=== PATIENT | female | born 1985 | race African-American/Black ===

== ENCOUNTER → 2022-09-27 14:14 | Outpatient (CLI) | payer OTHER, SELFPAY ==
--- NOTE | ~2022-09-27 | MMUS_ITS ---
EXAMINATION: MM diagnostic aster BI w nallely, US breast BI complete HISTORY: Palpable left breast lump TECHNIQUE: Additional 3-D tomosynthesis images of the breasts were performed and synthetic 2-D images were generated. CAD analysis was submitted and interpreted. High resolution bilateral complete breas t ultrasound was performed. COMPARISON: None BREAST PARENCHYMAL COMPOSITION: The breasts are extremely dense, which lowers the sensitivity of mamm ography FINDINGS: MAMMOGRAPHIC FINDINGS: There are no suspicious masses, calcifications or architectural distortion in either breast to sugges t malignancy. ULTRASOUND: Complete bilateral US of all 4 quadrants of the breasts and retroareolar region was reviewed. Right breast: At 12:00, 5 cm from the nipple, there is an oval hypoechoic mass measuring 7 x 7 x 4 mm without internal vascularity or posterior features. The margins are smooth with parallel orientation . At 7:00, 7 cm from the nipple there is a 2 mm cyst. Left breast: At 12:00, 1 cm from the nipple, there is a 4 mm cyst. At 4:00, 4 cm from the nipple ther e is a 4 mm cyst. IMPRESSION: 1. Probable benign right breast mass at 12:00, 5 cm from the nipple measuring 7 mm. No evidence for m alignancy in the left breast. 2. Recommend 6 month follow-up Limited right breast ultrasound BI-RADS category 3, probably benign findings. Reviewed, dictated and finalized at location A. IMPRESSION: 1. Probable benign right breast mass at 12:00, 5 cm from the nipple measuring 7 mm. No evidence for malignancy in the left breast. 2. Recommend 6 month follow-up Limited right breast ultrasound BI-RADS category 3, probably benign findings.
== END ==
DX: N63.20 Unspecified lump in the left breast, unspecified quadrant (principal); N63.10 Unspecified lump in the right breast, unspecified quadrant
CPT/HCPCS: 76641; 77062; 77066; G0279

== ENCOUNTER 2024-09-10 12:05 | Emergency (ER) | payer OTHER, SELFPAY ==
[2024-09-10] VITALS (9 sets, daily range): BP systolic 125–137; BP diastolic 75–93; PULSE 78–82; RESP 18–20; TEMP 36.6–36.7; O2SAT 99–100
--- NOTE | ~2024-09-10 | CT_ITS ---
EXAMINATION: CT abdomen pelvis w con DATE: 09/10/2024 13:43 INDICATION: Periumbilical abdominal pain. Leukocytosis. TECHNIQUE: Computed tomography (CT) of the abdomen and pelvis was performed with 100 mL Omnipaque 350 intravenous contrast. Automated exposure control and iterative reconstruction technique were employe d. The dose-length product was 440.59 mGy-cm. COMPARISON: None. FINDINGS: The visualized portions of the lung bases are clear without pneumonia or pleural effusion. The heart size is normal. No pericardial effusion. The liver, gallbladder, spleen, pancreas, adrenal glands, and kidneys are normal. There is a 6.0 cm mass in the uterus, likely separate from the endome trial complex, consistent with a fibroid. There is a 17 mm uterine fibroid. There are no dilated loop s of bowel. The appendix is normal. There are no pathologically enlarged lymph nodes. There is physio logic fluid in the pelvis. There is mild lumbar spondylosis. IMPRESSION: 1. Uterine fibroids. Reviewed, dictated and finalized at location B. IMPRESSION: 1. Uterine fibroids.
[2024-09-10 12:56] LABS: BEDSIDEPREGUCG Negative (Negative)
[2024-09-10 13:00] LABS: Basophils Absolute Auto 0.1 K/mm3 (0.0-0.1); Basophils Percent Auto 0.5 % (0.2-1.2); Eosinophils Absolute Auto 0.3 K/mm3 (0-0.3); Eosinophils Percent Auto 2.1 % (0-4.4); Hematocrit 38.6 % (37.0-47.0); Hemoglobin 12.1 g/dL (12.0-15.0); Immature Granulocyte Absolute 0.04 K/mm3 (0.00-0.031); Immature Granulocyte Percent A 0.3 % (0-0.5); Lymphocytes Absolute Auto 3.61 K/mm3 (0.9-3.2); Lymphocytes Percent Auto 29.6 % (18.3-44.2); Mean Corpuscular HGB Conc 31.3 g/dl (32-36); Mean Corpuscular Hemoglobin 26.9 pg (26-34); Mean Platelet Volume 9.9 fl (7.4-10.4); Monocytes Percent Auto 8.3 % (2.6-8.5); Neutrophils Absolute Auto 7.2 K/mm3 (1.3-6.7); Neutrophils Percent Auto 59.2 % (45.5-73.1); Platelet Count Result 350 k/mm3 (150-375); Red Blood Count 4.49 M/mm3 (4.2-5.4); Red Cell Distribution Width 13.7 % (11.5-14.5); White Blood Count 12.2 K/mm3 (4.5-10.0)
[2024-09-10 13:02] LABS: Add Urine Microscopic? NO; Appearance Urine Clear (Clear); Bilirubin Urine Negative (Negative); Blood Urine Negative (Negative); Color Urine Yellow (Yellow); Glucose Urine UA Negative (Negative); Ketones Urine 1+ mg/dL (Negative); Leukocyte Esterase Ur Negative LEU/UL (Negative); Nitrate Urine Negative (Negative); Protein Urine Negative (Negative); Specific Grav Ur 1.006 (1.001-1.035); Urobilinogen Urine 0.2 mg/dL (<2.0); pH Urine 5.5 (5.0-9.0)
[2024-09-10 13:11] LABS: Alanine Aminotransferase 20 U/L (6-35); Albumin Level 4.4 g/dL (3.5-5.1); Alkaline Phosphatase 64 U/L (38-126); Anion Gap 13 mmol/L (4-12); Aspartate Amino Transferase 22 U/L (14-36); Bilirubin,Total 0.6 mg/dL (0.2-1.3); Blood Urea Nitrogen 7 mg/dL (7-17); Calcium 9.1 mg/dL (8.4-10.2); Carbon Dioxide 21 mmol/L (22-30); Chloride 102 mmol/L (98-107); Estimated CRCL calculation 74 ml/min; Estimated Glomerular Filt Rate > 60; Glucose 90 mg/dL (65-110); Lipase 30 U/L (23-300); Potassium 3.9 mmol/L (3.4-5.0); Sodium 136 mmol/L (137-145)
--- NOTE | 2024-09-10 13:36 | ED_ITS ---
HPI - Abdominal Pain General Chief Complaint: Abdominal Pain Stated Complaint: Lower abd pain x 1 week Time Seen by Provider: 09/10/24 13:08 History of Present Illness HPI narrative: 39-year-old female with no pertinent past medical history presenting to the emergency room for 1 week of periumbilical lower abdominal pain that is bilateral. Patient states that has been going for last week, might be related to food as she states that she was having some indigestion sensations and feeling of bloating and gas. Has been taking rtlr-bwh-gplymci medications and Gas-X without any help. No nausea or vomiting. Endorses more pain and left- sided somewhat radiating towards her left flank occasionally. Previous to this she started having episodes of diarrhea that has since subsided. Patient describes the pain as menstrual type cramping but denies any current menses. No fever chills. Was otherwise in her normal state of health, denies chance of , denies any injury or trauma. Related Data Home Medications ?Medication ?Instructions ?Recorded ?Confirmed ?Last Taken ?Type norethindrone (contraceptive) 0.35 0.35 mg PO DAILY 05/25/24 06/08/24 Unknown History mg tablet Allergies Allergy/AdvReac Type Severity Reaction Status Date / Time No Known Allergies Allergy Verified 09/10/24 12:06 Review of Systems 2 Review of Systems: As reviewed above in HPI [facility] Family History Family History Mother Breast cancer onset in her 30s, also Maternal Grandmother and Great grandmother Carcinoma of colon Father Liver disease Bone cancer Social History Social History Smoking status: Current every day smoker Tobacco type: cigarettes Additional smoking assessment comments: Noted that she had tried to quit smoking in 2019 Alcohol intake: current Drinks per week: 4 Alcohol use details: Drinks 1-4 drinks per week Substance use: current Substance use type: marijuana Do You Feel Safe in your Home?: Yes Lack of Transportation: No Lack of Food: Never True Current Housing: I Have Housing Concerned About Future Housing: No Difficulty Paying Gas/Electric Bills: No Difficulty Paying for Meds: No Currently Unemployed: No Education: Associate Degree Difficulty w/ Childcare or Family Care: No Exam 2 Narrative: GENERAL: [Well-appearing, well-nourished, and in no acute distress.] HEAD: [Normocephalic, atraumatic.] EYES: [PERRLA and EOMI.] ENT: Nares clear, no rhinorrhea or epistaxis. Mucous membranes moist. NECK: Supple. CHEST: [Clear to auscultation. No respiratory distress.] HEART: [Regular rate and rhythm]. No murmur heard. [Normal peripheral pulses.] ABDOMEN: [Soft, nondistended], [nontender], [No rigidity or guarding] EXTREMITIES: Normal range of motion. [No edema.] SKIN: Warm, dry, no rash. NEURO: [No focal deficits]. Alert and oriented [x3.] PSYCH: [Normal mood and affect.] Course Vital Signs Vital signs: Vital Signs Temperature 36.6 C 09/10/24 12:16 Pulse Rate 82 09/10/24 12:16 Respiratory Rate 20 09/10/24 12:16 Blood Pressure 137/90 09/10/24 12:16 Pulse Oximetry 100 09/10/24 12:16 Oxygen Delivery Room Air 09/10/24 12:16 Temperature 36.6 C 09/10/24 12:16 Pulse Rate 81 09/10/24 12:44 Respiratory Rate 18 09/10/24 12:44 Blood Pressure 130/81 09/10/24 13:01 Pulse Oximetry 100 09/10/24 13:03 Oxygen Delivery Room Air 09/10/24 12:16 MDM - Abdominal Pain MDM Narrative Medical decision making narrative: 39-year-old otherwise healthy female presenting with lower abdominal pain bilaterally but more so focused on the left side left flank. Lower periumbilical pain for 1 week with previous diarrheal illness for several days. Feels bloated and having menstrual type cramping sensations. Taking wjwq-inv-qcbpgya medications without relief. She is otherwise well-appearing with normal vital signs no tachycardia, fever, hypoxia blood pressure concerns. She has a soft nontender nondistended abdomen. Patient is comfortable with the pain that is 3/10 declining any analgesia medications at this time. Considerations presently for gastroenteritis, appendicitis, cholecystitis less likely, potential ovarian pathology although less likely. Workup ordered including CBC, CMP, lipase, urinalysis, CT scan with abdomen pelvis contrast. Workup reveals a minor leukocytosis of 12.2, normal hemoglobin, normal platelet count. Electrolytes largely within normal limits, normal renal and hepatic function panel. Normal glucose. Negative lipase. Urinalysis with negative test and no signs of infection. CT scan shows uterine fibroids with a 6 cm intrauterine fibroid and a 17 mm uterine fibroid an additional. I went and re-evaluated the patient who had no symptoms at this time, stable vital signs and we went over the imaging studies together. Her symptoms are very consistent with her fibroids that she has been having these intermittent cramping menstrual period pains without menses recently. Went over next steps and recommendations for OBGYN outpatient evaluation on non urgent/emergent basis and ibuprofen and Tylenol for pain control. Patient was given return precautions and safe for stable discharge at this time. Medical Records Attestation: I reviewed the patient's medical records. Lab Data Attestation: I reviewed the patient's lab results. 09/10/24 12:52 09/10/24 12:52 Labs: Lab Results 09/10/24 09/10/24 Range/Units 12:50 12:52 WBC 12.2 H (4.5-10.0) K/mm3 RBC 4.49 (4.2-5.4) M/mm3 Hgb 12.1 (12.0-15.0) g/dL Hct 38.6 (37.0-47.0) % MCV 86.0 (80-100) fl MCH 26.9 (26-34) pg MCHC 31.3 L (32-36) g/dl RDW 13.7 (11.5-14.5) % Plt Count 350 (150-375) k/mm3 MPV 9.9 (7.4-10.4) fl Immature Gran % (Auto) 0.3 (0-0.5) % Neut % (Auto) 59.2 (45.5-73.1) % Lymph % (Auto) 29.6 (18.3-44.2) % Gonzales % (Auto) 8.3 (2.6-8.5) % Eos % (Auto) 2.1 (0-4.4) % Baso % (Auto) 0.5 (0.2-1.2) % Lymph # (Auto) 3.61 H (0.9-3.2) K/mm3 Gonzales # (Auto) 1.0 H (0.1-0.6) K/mm3 Eos # (Auto) 0.3 (0-0.3) K/mm3 Baso # (Auto) 0.1 (0.0-0.1) K/mm3 Abs Immat Gran (auto) 0.04 H (0.00-0.031) K/mm3 Absolute Neuts (auto) 7.2 H (1.3-6.7) K/mm3 Absolute Nucleated RBC 0.000 (0.0-0.012) K/mm3 Nucleated RBC % 0.0 (0.0-0.2) % Sodium 136 L (137-145) mmol/L Potassium 3.9 (3.4-5.0) mmol/L Chloride 102 (98-107) mmol/L Carbon Dioxide 21 L (22-30) mmol/L Anion Gap 13 H (4-12) mmol/L BUN 7 (7-17) mg/dL Creatinine 0.81 (0.7-1.0) mg/dL Estim Creat Clear Calc 74 ml/min Estimated GFR > 60 (59 - ) Glucose 90 (65-110) mg/dL Calcium 9.1 (8.4-10.2) mg/dL Total Bilirubin 0.6 (0.2-1.3) mg/dL AST 22 (14-36) U/L ALT 20 (6-35) U/L Alkaline Phosphatase 64 (38-126) U/L Total Protein 8.0 (6.3-8.2) g/dL Albumin 4.4 (3.5-5.1) g/dL Lipase 30 (23-300) U/L Urine Color Yellow (Yellow) Urine Appearance Clear (Clear) Urine pH 5.5 (5.0-9.0) Ur Specific Humble 1.006 (1.001-1.035) Urine Protein Negative (Negative) mg/dL Urine Glucose (UA) Negative (Negative) mg/dL Urine Ketones 1+ H (Negative) mg/dL Ur Blood (Man) Negative (Negative) Urine Nitrate Negative (Negative) Urine Bilirubin Negative (Negative) Urine Urobilinogen 0.2 (<2.0) mg/dL Leukocyte Esterase Rfl Negative (Negative) TRENT/UL POC Urine HCG, Qual Negative (Negative) Imaging Data Attestation: I personally reviewed and interpreted this imaging study as follows: My impression: Impressions Abdomen/Pelvis CT 09/10/24 13:45 IMPRESSION: 1. Uterine fibroids. Radiologist's impression: ITS Impressions Abdomen/Pelvis CT 09/10/24 13:45 IMPRESSION: 1. Uterine fibroids. Discharge Plan Discharge Clinical Impression: Uterine fibroid, Abdominal pain Patient Disposition: Home, Self-Care Condition: Stable Instructions: Antibiotic Form, Uterine Fibroids (ED), Myomectomy (DC) Additional Instructions: Your CT scan shows uterine fibroids which are out growths of the uterus including a 6 cm fibroid inside the uterus and a 17 mm fibroid outside the uterus. These are benign growths but likely explaining your symptoms. Recommendations at this time are to get in contact with OBGYN which we have provided for you to evaluate you on an outpatient basis for potential interventions and take ibuprofen, Advil up to 600 mg every 6 hours if you have any residual pains or cramping sensations. Return if you have any new or worsening concerns such as heavy vaginal bleeding, increased pain, loss of consciousness or any other concerns. Patient Language: Belarusian Prescriptions: No Action norethindrone (contraceptive) 0.35 mg tablet 0.35 mg PO DAILY fluticasone propionate 50 mcg/actuation spray,suspension 1 spray intranasal DAILY Qty: 16 0RF Rx Instructions: administer into each nostril ondansetron HCl 4 mg tablet 4 mg PO Q8H PRN (Reason: nausea and vomiting) Qty: 20 0RF Follow-up/Referrals: Alycia Hernandez MD [Physician] - 1 Week (Uterine fibroids) Brissa Garcia APRN [Primary Care Provider] - Time of Disposition: 15:50
--- OUTSIDE RECORDS SUMMARY | 2024-09-10 13:59 | XMS_ITS | Referral Summary ---
Author Organization [facility] [address] [facility] Address [address] [place] [address] Care Team Providers Care Cocoa Powder Mixer Operator Name Role Phone Lawanda Salgado Primary Care Provider +1- [phone] Allergies No known active allergies Medications omeprazole (PriLOSEC) 20 mg capsuleIndicatio ns:Acute gastric ulcer without hemorrhage or perforation Take 1 capsule (20 mg total) by mouth daily 30 capsule 05/19/2021 Active Vienva 0.1-20 mg-mcg per tablet TAKE 1 TABLET BY MOUTH DAILY 28 tablet 08/24/2021 Active Active Problems Problem Noted Date Diagnosed Date BMI 27.0-27.9,adult 09/17/2020 Assessment & Plan (09/17/2020 3:07 PM CDT): Weight/BMI is in healthy range. Continue healthy lifestyle to maintain. Gastric ulcer 09/17/2020 Family history of breast cancer 09/17/2020 Assessment & Plan (09/17/2020 3:08 PM CDT): Discussed and advised referral for genetic counseling - she wants to pause this at the current time due to a job change. She will contact us over the coming weeks as she will be ready to pursue at that time. Also advised routine well woman exam - here or with sharepoint net developer and instructed on monthly self breast exams Family history of colon cancer 09/17/2020 Assessment & Plan (09/17/2020 3:07 PM CDT): Discussed and advised referral for genetic counseling - she wants to pause this at the current time due to a job change. She will contact us over the coming weeks as she will be ready to pursue at that time. Encounter to establish care 09/17/2020 Assessment & Plan (09/17/2020 3:06 PM CDT): Retrieve records from Dr. Delgado's office Encouraged continued heart healthy diet, exercise 4x/week for 30min each session Anxiety 09/17/2020 Assessment & Plan (09/17/2020 3:07 PM CDT): Declines medication at this time. Will refer to counseling. Episode of recurrent major depressive disorder 0 09/17/2020 Assessment & Plan (09/17/2020 3:07 PM CDT): Declines medication at this time. Will refer to counseling. Immunizations Immunization Administration Dates Next Due Influenza, Quadrivalent, Spl it, Preservative Free, Intramuscular 04/12/2020 Pfizer SARS-CoV-2 Monovalent Vaccination (12+ Yrs) PURPLE 09/02/2020 Social History Tobacco Use Types Packs/Day Years Used Date Smoking Tobacco: Former Smokeless Tobacco: Never Comments:quit a year ago PHQ-2 Answer Date Recorded PHQ-2 Total Score (If total score is 3 or more points, staff should administer the PHQ-9) 0 09/17/2020 Personal Safety Answer Date Recorded Getting School Help Needed Not on file 09/03 Comments Unknown Sex and Gender Information Value Date Recorded Sex Assigned at Not on file 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 Gender Identity Not on file Sexual Orientation Not on file Last Filed Vital Signs Vital Sign Reading Time Taken Comments Blood Pressure 100/60 09/17/2020 1:09 PM CDT Pulse 73 09/17/2020 1:09 PM CDT Temperature 36.5 C (97.7 F) 09/17/2020 1:09 PM CDT Respiratory Rate - - Oxygen Saturation 98% 09/17/2020 1:09 PM CDT Inhaled Oxygen Concentration - - Weight 68.7 kg (151 lb 8 oz) 09/17/2020 1:09 PM CDT Height 157.5 cm (5' 2 ) 09/17/2020 1:09 PM CDT Body Mass Index 27.71 09/17/2020 1:09 PM CDT Plan of Treatment Not on file Insurance [facility] Care Teams Cocoa Powder Mixer Operator Relationship Specialty Start Date End Date Lawanda Salgado PA PCP - General Medical And Health Services Manager 09/08/20
--- OUTSIDE RECORDS SUMMARY | 2024-09-10 13:59 | XMS_ITS | Clinical Summary ---
Author Organization [facility] [address] [facility] Address [address] [place] [address] Care Team Providers Care Grain Merchandiser Name Role Phone Lawanda Salgado Primary Care Provider +1- [phone] Allergies No known active allergies Medications omeprazole [...] well woman exam - here or with interlocking pavement installer and instructed on monthly self breast exams [...] SARS-CoV-2 Monovalent Vaccination (12+ Yrs) PURPLE 09/02/2020 Family History Medical History Relation Name Comments Heart disease Father Breast cancer Mother Colon cancer Mother Relation Name Status Comments Father Mother mother had brai n tumor Social History Tobacco Use Types Packs/Day Years [...] on file Legal Sex Female 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
--- OUTSIDE RECORDS SUMMARY | 2024-09-10 16:00 | XMS_ITS | Clinical Summary ---
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
--- OUTSIDE RECORDS SUMMARY | 2024-09-10 16:00 | XMS_ITS | Referral Summary ---
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
== END 2024-09-10 16:02 | disposition home or self-care (01) ==
PROVIDERS: Emergency Provider Student in an Organized Health Care Education/Training Program; PCP Nurse Practitioner Family
DX: D25.9 Leiomyoma of uterus, unspecified (principal); F17.210 Nicotine dependence, cigarettes, uncomplicated
CPT/HCPCS: 36415; 74177; 80053; 81003; 81025; 83690; 85025; 99284; Q9967

== ENCOUNTER 2024-11-06 10:26 | Outpatient (CLI) | payer OTHER, SELFPAY ==
[2024-11-06 10:51] LABS: Hemoglobin 12.7 g/dL (12.0-15.0); Mean Corpuscular Hemoglobin 26.5 pg (26-34); Mean Corpuscular Volume 85.4 fl (80-100); Mean Platelet Volume 9.9 fl (7.4-10.4); Platelet Count Result 307 k/mm3 (150-375); Red Cell Distribution Width 14.6 % (11.5-14.5); White Blood Count 8.6 K/mm3 (4.5-10.0)
--- OUTSIDE RECORDS SUMMARY | 2024-11-06 11:22 | XMS_ITS | Referral Summary ---
Author Organization [facility] [address] [facility] Address [address] [place] [address] Care Team Providers Care Soft Drink Powder Mixer Name Role Phone Lawanda Salgado Primary Care Provider +1- [phone] Allergies No known active allergies Medications omeprazole [...] well woman exam - here or with artificial flower maker and instructed on monthly self breast exams [...] on file Legal Sex Female 4:[address] COMMISSIONER Gender Identity Not on file Sexual Orientation [...] Plan of Treatment Not on file Insurance [facility] Care Teams Soft Drink Powder Mixer Relationship Specialty Start Date End Date Lawanda Salgado PA PCP - General Organ Installer 09/08/20
--- OUTSIDE RECORDS SUMMARY | 2024-11-06 11:22 | XMS_ITS | Clinical Summary ---
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
== END 2024-11-06 10:27 | disposition home or self-care (01) ==
LOC: ANHSURGERY 10:29
PROVIDERS: PCP Nurse Practitioner Family; Visit Provider Student in an Organized Health Care Education/Training Program
DX: R10.2 Pelvic and perineal pain (principal); N93.9 Abnormal uterine and vaginal bleeding, unspecified
CPT/HCPCS: 36415; 85027; 86850; 86900; 86901

== ENCOUNTER 2024-11-06 11:37 | Outpatient (CLI) | payer OTHER, SELFPAY ==
--- NOTE | ~2024-11-06 | MM_ITS ---
EXAMINATION: MM screening [facility] BI w nallely HISTORY: Screening TECHNIQUE: Craniocaudal and mediolateral oblique 3-D tomosynthesis images were obtained and synthetic 2-D images were generated. CAD analysis was submitted and interpreted. COMPARISON: 09/27/2022 BREAST PARENCHYMAL COMPOSITION: Dense: The breasts are extremely dense, which lowers the sensitivity of mammography. FINDINGS: There is a developing asymmetry in the upper central aspect of the left breast, posterior t hird. The right breast is stable without evidence for malignancy. IMPRESSION: 1. Developing left breast asymmetry. 2. Additional mammographic views and possible breast ultrasound are recommended. BI-RADS Category 0: Incomplete: Needs additional imaging evaluation. Reviewed, dictated and finalized at location A. IMPRESSION: 1. Developing left breast asymmetry. 2. Additional mammographic views and possible breast ultrasound are recommended . BI-RADS Category 0: Incomplete: Needs additional imaging evaluation.
== END 2024-11-06 11:38 | disposition home or self-care (01) ==
PROVIDERS: PCP Nurse Practitioner Family; Visit Provider Nurse Practitioner Family
DX: Z12.31 Encounter for screening mammogram for malignant neoplasm of breast (principal); N64.89 Other specified disorders of breast
CPT/HCPCS: 77063; 77067

== ENCOUNTER 2024-11-13 00:55 | Day surgery (SDC) | payer OTHER, SELFPAY ==
[2024-10-31 12:17] VITALS: BMI 30.2
--- NOTE | 2024-10-31 12:18 | PC.NURSE ---
Report to the Outpatient Waiting Room, entrance under the green pavilion located off [facility], at time _0830_ on date _[id number]_. Planned Procedure Time: _1030_. Time changes happen often and if your time is changed the preop area will call you the afternoon before. - You and your visitor will be asked to self-screen and do not enter if you have any COVID symptoms. Please call surgeon if you need to reschedule. - A mask is optional within the hospital at this time. Patients may have clear liquids (water, carbonated beverages, clear teas, apple juice) until 3 hours prior to surgery with a maximum of 20 ounces. - No food from midnight until time of surgery and no smoking, or chewing tobacco (or any form of nicotine). No chewing gum, candy or mints. Take only the following medications with a SIP of water on the morning of surgery: __Sprintec___ DO NOT STOP ANY OF YOUR OTHER PRESCRIPTION MEDICATIONS PRIOR TO SURGERY EXCEPT THE FOLLOWING Hold all vitamins and supplements for 3 days per anesthesiologist. Medications to discontinue per physician Date to take last dose Please no make-up, nail danish, hairspray, perfume, deodorant, or body powder the day of surgery. No jewelry (including any body piercings) or valuables the day of surgery, leave them at home. Please take a shower or bath the night before, or the morning of, surgery with an antibacterial soap. Wear comfortable, loose fitting clothing. - Jewelry must be removed prior to entering the operating room. Rings and piercings that are not removed may be cut off. - The hospital will not accept responsibility for valuables. - Please leave all valuables, including medications, at home the day of surgery. If you are going home after surgery, a licensed goat driver must drive you home. - NO public transportation without another adult if you receive anesthesia. - We recommend that an adult stay with you for 24 hours following discharge. - We also recommend that you do not drive, make important decision, drink alcoholic beverages, or take any drugs that were not prescribed by your health care provider for at least 24 hours after your discharge time. Follow any additional instructions given to you from your surgeon. Telephone instructions given to _Krista___and asked if any additional questions and then verbalized understanding. Patient advised to call surgeon office or pre surgery nurse liaison [phone] if any additional questions.
--- NOTE | 2024-11-12 13:53 | P.HP_ITS ---
H&P: HPI History of Present Illness Date/Time: 11/12/24 13:53 Chief Complaint: Abnormal uterine bleeding Uterine fibroids Pelvic pain Narrative: 39-year-old female who presents for robotic TLH / BS for management of abnormal uterine bleeding secondary to uterine fibroids. Patient has tried hormonal contraceptives without relief of abnormal bleeding. Patient does not desire any children. Patient requests surgical management via hysterectomy. Review of Systems Cardiovascular: Cardiovascular: Denies chest pain, Denies leg edema, Denies palpitations, Denies dyspnea and Denies dyspnea on exertion Respiratory: Respiratory: Denies cough, Denies dyspnea and Denies dyspnea on exertion Gastrointestinal: Gastrointestinal: Denies abdominal pain, Denies constipation, Denies diarrhea, Denies nausea and Denies vomiting Genitourinary: Genitourinary: Denies hematuria, Denies urinary frequency, Denies dysuria, Denies pelvic pain, Denies urinary incontinence and Denies vaginal discharge Neurologic: Reports system reviewed and no additional complaints, except as documented Psychiatric: Psychiatric: Reports no additional psychiatric complaints Endocrine: Endocrine: Denies palpitations [facility] Family History Family History Mother Breast cancer onset in her 30s, also Maternal Grandmother and Great grandmother Carcinoma of colon Father Liver disease Bone cancer Grandparent Heart disease Hypertension Breast cancer Social History Social History Smoking packs per day: 1 Smoking cigarettes per day: 20.0 Years smoked: 15 Smoking pack-years: 15.00 Smoking status: Current every day smoker Tobacco type: cigarettes Additional smoking assessment comments: Noted that she had tried to quit smoking in 2019 Alcohol intake: current Drinks per week: 6 Alcohol use details: Drinks 1-4 drinks per week Substance use: current Substance use type: marijuana Other substance usage details: Occasionally Do You Feel Safe in your Home?: Yes Lack of Transportation: No Lack of Food: Never True Current Housing: I Have Housing Concerned About Future Housing: No Difficulty Paying Gas/Electric Bills: No Difficulty Paying for Meds: No Currently Unemployed: No Education: Associate Degree Difficulty w/ Childcare or Family Care: No Living arrangements: with family Occupation/Education: occupation Gender identity (if verbalized by the patient): Female Sexual Orientation (if Verbalized by the Patient): Straight or Heterosexual Spiritual care concerns: No Meds Home Medications and Allergies Home Medications Medication Instructions Recorded Confirmed Type norgestimate 0.25 mg-ethinyl 1 tablet PO DAILY #84 tabs 09/24/24 10/31/24 Rx estradiol 0.035 mg tablet (Sprintec (28)) ondansetron HCl 4 mg tablet 4 mg PO Q6H PRN nausea and 10/24/24 10/31/24 Rx vomiting #30 tabs Allergies Allergy/AdvReac Type Severity Reaction Status Date / Time No Known Allergies Allergy Verified 10/31/24 12:08 Exam Const: General: no acute distress Eyes: EOM: EOMs intact bilaterally Neck: Neck: supple Thyroid: thyroid normal Chest: Breast/axilla inspection: normal inspection of the breasts Breast/axilla palpation: normal palpation of the breasts, normal palpation of the axillae and no axillary lymphadenopathy Resp: Effort & Inspection: normal respiratory effort Auscultation: clear to auscultation bilaterally Cardio: Rate: regular rate Rhythm: regular rhythm GI: Inspection: non-distended GI Palp: Yes Soft to palpation, No Tenderness to palpation present (GI) and No Guarding due to palpation present (GI) Auscultation: normal bowel sounds : General: No bladder normal to palpation External Female Exam: normal external appearance Speculum Exam - Vagina: normal vaginal discharge and No vaginal bleeding Speculum Exam - Cervix: nontender Bimanual exam- vagina & uterus: No bladder normal to palpation and No Cervical tenderness present OB/external & speculum: No vaginal bleeding Skin: General skin exam: normal color and no rashes or lesions noted Neuro: Cognition (Neuro): normal cognition Speech: normal speech Extrem: General: normal to inspection and no edema Psych: Mental Status: mental status grossly normal Affect: normal affect Assessment and Plan Assessment and plan (1) Abnormal uterine bleeding (AUB): Code(s): N93.9 - Abnormal uterine and vaginal bleeding, unspecified Status: Acute (2) Pelvic pain: Code(s): R10.2 - Pelvic and perineal pain Status: Acute (3) Uterine fibroid: Code(s): D25.9 - Leiomyoma of uterus, unspecified Status: Inactive Assessment and Plan: 39-year-old female presents for follow-up regarding uterine fibroids Patient initially presented to the ER with pelvic pain, CT scan showed enlarged uterus with fibroids Pelvic ultrasound showed uterus measuring 8.9 x 8.8 x 8.2 cm. There were 3 uterine fibroids noted, 6 cm, 2 cm, 2 cm. The largest 6 cm fibroid is within the endometrial cavity Patient continues to have heavy menses despite hormonal contraceptive use Management options of uterine fibroids reviewed Discussed medical versus surgical management Risks and benefits of each reviewed Patient does not desire any children Patient is interested in definitive management of uterine fibroids Risks, benefits, alternatives of hysterectomy reviewed Will plan for robotic assisted total laparoscopic hysterectomy with bilateral salpingectomy
[2024-11-13] VITALS (10 sets, daily range): BP systolic 111–147; BP diastolic 67–89; PULSE 55–100; RESP 14–18; TEMP 36.3–37.1; O2SAT 96–100; BMI 30.9
--- OUTSIDE RECORDS SUMMARY | 2024-11-13 00:59 | XMS_ITS | Clinical Summary ---
Author [place] [facility] [place] [address] [facility] Address [address] [place] [address] Care Team Providers Care Ferry Captain Name Role Phone Lawanda Salgado Primary Care Provider [phone]- [phone] Allergies No known active allergies Medications omeprazole [...] well woman exam - here or with manager air and instructed on monthly self breast exams [...] 3:06 PM CDT): Retrieve records from Dr. 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
--- OUTSIDE RECORDS SUMMARY | 2024-11-13 00:59 | XMS_ITS | Referral Summary ---
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
[2024-11-13] MEDS: LACTATED RINGERS 1,000 ML 30 ML IV CONT ×2 (09:10→12:51)
[2024-11-13] MEDS: ACETAMINOPHEN 500 MG TABLET 1000 MG PO ×3 (09:20→22:10)
[2024-11-13] MEDS: KETOROLAC 15 MG/ML VIAL (*BKC) IV PUSH (09:20)
--- NOTE | 2024-11-13 10:26 | P.PNAN_ITS ---
Anes - Initial Pre Proc Eval Procedure: Operation Date: 11/13/24 10:30 Proposed Procedures p Robotic Assisted Total Laparoscopic Hysterectomy with Bilateral Salpingectomy - Nikolas Arciniega MD Date/Time: 11/13/24 10:26 Surgeon: Nikolas Arciniega MD Pre Op Diagnosis: uterine fibroid Patient Data Age: 39 Gender: F Height: 1.55 m Weight: 74.4 kg Last Vital Signs Temp 36.4 C 11/13/24 08:55 Pulse 63 11/13/24 08:55 Resp 16 11/13/24 08:55 BP 115/67 11/13/24 08:55 Pulse Ox 98 11/13/24 08:55 Allergies Allergy/AdvReac Type Severity Reaction Status Date / Time No Known Allergies Allergy Verified 11/13/24 09:50 Home Medications Medication Instructions Recorded Confirmed Type norgestimate 0.25 mg-ethinyl 1 tablet PO DAILY #84 tabs 09/24/24 11/13/24 Rx estradiol 0.035 mg tablet (Sprintec (28)) ondansetron HCl 4 mg tablet 4 mg PO Q6H PRN nausea and 10/24/24 10/31/24 Rx vomiting #30 tabs Patient hx anesthesia problems: none Family hx anesthesia problems: none Results Review: All pre-operative results and documents have been reviewed as part of the pre- operative evaluation. [facility] Family History Family History Mother Breast cancer onset in her 30s, also Maternal Grandmother and Great grandmother Carcinoma of colon Father Liver disease Bone cancer Grandparent Heart disease Hypertension Breast cancer Social History Social History Smoking packs per day: 1 Smoking cigarettes per day: 20.0 Years smoked: 15 Smoking pack-years: 15.00 Smoking status: Current every day smoker Tobacco type: cigarettes Additional smoking assessment comments: Noted that she had tried to quit smoking in 2019 Alcohol intake: current Drinks per week: 6 Alcohol use details: Drinks 1-4 drinks per week Substance use: current Substance use type: marijuana Other substance usage details: Occasionally Do You Feel Safe in your Home?: Yes Lack of Transportation: No Lack of Food: Never True Current Housing: I Have Housing Concerned About Future Housing: No Difficulty Paying Gas/Electric Bills: No Difficulty Paying for Meds: No Currently Unemployed: No Education: Associate Degree Difficulty w/ Childcare or Family Care: No Living arrangements: with family Occupation/Education: occupation Gender identity (if verbalized by the patient): Female Sexual Orientation (if Verbalized by the Patient): Straight or Heterosexual Spiritual care concerns: No Anes - Eval Final PreProcedure Day of Procedure 11/13/24 10:26 Patient weight: overweight Heart: regular rate and rhythm Lungs: clear to auscultation Airway: Mallampati scale class II Neurological: alert and oriented Last oral intake: >/= 8 hours ASA classification: II Emergent: no Anesthetic plan: proceed Anesthesia type and monitoring: general ETT and standard monitoring Results Review: All pre-operative results and documents have been reviewed as part of the pre- operative evaluation. Informed Consent: The patient's anesthetic plan and its attendant risks and benefits were discussed with the patient/family/POA. Questions were solicited and answers provided to the satisfaction of the patient/family/POA.
--- NOTE | 2024-11-13 10:30 | WPDHPUPDATE1 ---
History and Physical Update Update Date/Time: 11/13/24 10:30 History and Physical has been reviewed, including an updated exam of the patient. There are NO changes in the patient's condition. Risks, benefits, and alternatives have been discussed and questions answered. Patient agrees to proceed with procedure.
[2024-11-13] MEDS: ceFAZolin 2 GM/D5W 50 ML 2 GM/50 ML BAG IVPB (11:16)
[2024-11-13] MEDS: SCOPOLAMINE 1 MG PATCH 1 PATCH TRANSDERM (11:30)
[2024-11-13] MEDS: LIDO 1%/EPINEPHRINE 1:100,000 20 ML VIAL 21 ML INFILTRATE (11:57)
[2024-11-13 12:27] LABS: BEDSIDEPREGUCG Negative (Negative)
--- NOTE | 2024-11-13 12:35 | P.OP_ITS ---
Procedure Note - Detailed Date of Procedure 11/13/24 Pre-op Diagnosis uterine fibroid pelvic pain AUB Post-op Diagnosis Same Procedure Performed robotic assisted total laparoscopic hysterectomy and bilateral salpingectomy Surgeon Nikolas Arciniega MD Anesthesia General Indications pelvic pain AUB uterine fibroid Findings globally enlarged uterus with multiple fibroids. normal appearing fallopian tubes and ovaries bilaterally Description of Procedure After the patient was appropriately consented she was taken to the operating room where she was transferred to the table in a dorsal supine position. General anesthesia was then induced with endotracheal intubation. The patient was transferred to a dorsal lithotomy position using adjustable yellow-fin stirrups. Her position was adjusted for appropriate supp ort of her lower back and lower extremities. The patient was prepped and draped. A transurethral bernstein catheter was place. The cervix was sequentially dilated and a LA uterine manipulator placed in typical fashion about a 3.5 cm YUNG ring. Gloves were changed. After confirmation of a functioning orogastric tube, lidocaine was injected at Titus's point in the LUQ and a 5mm incision was made. A 5mm Optiview trocar was then inserted into the abdominal cavity under direct visualization and done so without complication. The abdomen was then insufflated with approximately 2-3L of CO2 establishing a pneumoperitoneum and the patient was placed in Trendelenburg position. Just above the umbilicus in the midline, a 8 mm incision made after injection of lidocaine and a 8 mm bladeless trocar advanced into the abdominal cavity under direct visualization without incident. We subsequently placed two robotic ports in a similar fashion, one in the left mid-quadrant and one in the right, 10cm lateral to the midline port. The robot was then docked. Attention was turned to the left pelvis. The left fallopian tube was removed by sequentially dividing the mesosalpinx towards the uterus sparing the ovary. The utero-ovarian ligament was desiccated and transected, as was the round ligament. The posterior peritoneal leaf was taken down to the YUNG ring. The anterior leaf was developed as well as the start of the bladder flap. The left uterine artery was then skeletonized and desiccated and transected just above the level of the YUNG ring. Attention was turned to the right pelvis. The right fallopian tube was removed by sequentially dividing the mesosalpinx towards the uterus sparing the ovary. The utero-ovarian ligament was desiccated and transected, as was the round ligament. The posterior peritoneal leaf was taken down to the YUNG ring. The anterior leaf was developed as well as the start of the bladder flap. The right uterine artery was then skeletonized and desiccated and transected just above the level of the YUNG ring. The bladder was then further dissected inferiorly over the level of the YUNG ring. A circumferential colpotomy was made using monopolar current. Due to the size of the uterus, 2 seperate myomectomies had to be performed. The fundus of the uterus was then bi-valved to reduce the circumference of the specimen. The uterus, cervix, bilateral tubes, and fibroids were then delivered transvaginally. I then placed a single figure of eight suture of 0-vicryl in the left corner of the vaginal cuff. I then re-approximated the colpotomy with a running #1 PDO Quill suture in 2 layers. Following this dissection, the abdomen and pelvis were copiously irrigated and all surgical sites found to be hemostatic. Skin sites were reapproximated with 4-0 Vicryl in a subcuticular fashion. Steri-Strips were placed. The patient tolerated the procedure well. Sponge, needle and instrument counts were correct x 2 and the patient was taken to recovery in stable condition. Ancef wase given for antimicrobial prophylaxis. The patient had SCD's on for VTE prophylaxis during the entire procedure. Estimated Blood Loss 10 Drains No Packing No Pathology Yes (cervix, uterus, bilateral fallopian tubes, fibroids) Complications No immediate complications Condition Stable Disposition PACU [facility] Billing Surgery - Charge Forward: Surgery Billing
--- NOTE | 2024-11-13 14:00 | PC.NURSE ---
This patient, Laura Frye, was received from PACU on 11/13/24 at 1400. Patient/family oriented to unit policies and routines
[2024-11-13] MEDS: oxyCODONE HCL (*CRX) 5 MG TAB IR PO (14:21)
[2024-11-13] MEDS: KETOROLAC 30 MG/ML VIAL (*BKC) IV PUSH ×2 (16:05→22:10)
[2024-11-13] MEDS: DOCUSATE SODIUM 100 MG CAPSULE PO (16:08)
--- NOTE | 2024-11-13 19:22 | P.DS_ITS ---
DS: Admitting Diagnosis Discharge Date 11/14/24 Admitting Diagnosis uterine fibroid pelvic pain abnormal uterine bleeding DS: Discharge Diagnosis Discharge Diagnosis (1) Pelvic pain: Code(s): R10.2 - Pelvic and perineal pain Status: Acute (2) Abnormal uterine bleeding (AUB): Code(s): N93.9 - Abnormal uterine and vaginal bleeding, unspecified Status: Acute (3) Uterine fibroid: Code(s): D25.9 - Leiomyoma of uterus, unspecified Status: Inactive DS: Summary Hospital Course Hospital Course: Laura Frye was admitted after robotic assisted total laparoscopic hysterectomy and bilateral salpingectomy for abnormal uterine bleeding secondary to uterine fibroids. The above procedure was performed with no complications. She is doing well post op. She states her pain is well controlled with PO medications. She reports minimal bleeding. She is ambulating up to the chair. Her bernstein catheter was removed. She is tolerating PO without N/V. She reports passing flatus. Status at Discharge Overall status at discharge: patient is progressing back to baseline Time Spent with Patient Time attestation: Total time spent providing and/or coordinating discharge services: Time spent: Less than 30 minutes Exam Const: General: comfortable and no acute distress Limitations: no limitations Resp: Effort & Inspection: normal respiratory effort Auscultation: clear to auscultation bilaterally Cardio: Rate: regular rate Rhythm: regular rhythm GI: Inspection: non-distended GI Palp: Yes Soft to palpation, Yes Tenderness to palpation present (GI) (milder tenderness to deep palpation) and No Guarding due to palpation present (GI) Auscultation: normal bowel sounds Other: incisions C/D/I covered with dermabond Urinary Catheter: Urinary Catheter: urine clear Skin: General skin exam: normal color Extrem: General: normal to inspection Psych: Mental Status: mental status grossly normal Affect: normal affect DS: Data Data Completed and Pending Pending studies at discharge: Pending at discharge 11/13/24 12:22 Surgical [PTH] Routine Labs on day of discharge: Labs from last 24 hours 11/13/24 09:00 POC Urine HCG, Qual Negative Discharge Plan Discharge Patient Disposition: Home Patient Instructions: Laparoscopic Hysterectomy (DC) Patient Language: Citizen Of [place] Stand Alone Forms: General Discharge Instructions Follow-up/Referrals: Nikolas Arciniega MD [Physician] - 2 Weeks Discharge Medications: New oxycodone-acetaminophen 5-325 mg tablet 1 tablet PO Q6H PRN (Reason: pain) Qty: 28 0RF ibuprofen 600 mg tablet 600 mg PO Q6H PRN (Reason: pain) Qty: 30 0RF Continued ondansetron HCl 4 mg tablet 4 mg PO Q6H PRN (Reason: nausea and vomiting) Qty: 30 1RF Discontinued norgestimate-ethinyl estradiol [Sprintec (28)] 0.25-35 mg-mcg tablet 1 tablet PO DAILY Qty: 84 3RF
[2024-11-13] MEDS: SIMETHICONE 80 MG TAB.CHEW PO (22:09)
[2024-11-14] MEDS: ACETAMINOPHEN 500 MG TABLET 1000 MG PO ×2 (03:44→09:38)
[2024-11-14 03:45] VITALS: BP 110/61; PULSE 75; RESP 16; TEMP 36.9; O2SAT 98
[2024-11-14] MEDS: KETOROLAC 30 MG/ML VIAL (*BKC) IV PUSH (03:45)
[2024-11-14 04:33] LABS: Basophils Percent Auto 0.1 % (0.2-1.2); Eosinophils Percent Auto 0.1 % (0-4.4); Hemoglobin 12.8 g/dL (12.0-15.0); Immature Granulocyte Absolute 0.04 K/mm3 (0.00-0.031); Immature Granulocyte Percent A 0.3 % (0-0.5); Lymphocytes Absolute Auto 1.55 K/mm3 (0.9-3.2); Mean Corpuscular HGB Conc 31.2 g/dl (32-36); Mean Corpuscular Hemoglobin 26.5 pg (26-34); Mean Corpuscular Volume 84.9 fl (80-100); Mean Platelet Volume 10.2 fl (7.4-10.4); Monocytes Absolute Auto 0.8 K/mm3 (0.1-0.6); Monocytes Percent Auto 5.3 % (2.6-8.5); Neutrophils Absolute Auto 11.8 K/mm3 (1.3-6.7); Neutrophils Percent Auto 83.2 % (45.5-73.1); Platelet Count Result 344 k/mm3 (150-375); Red Blood Count 4.83 M/mm3 (4.2-5.4); White Blood Count 14.1 K/mm3 (4.5-10.0)
[2024-11-14 04:44] LABS: Anion Gap 7 mmol/L (4-12); Blood Urea Nitrogen 9 mg/dL (7-17); Calcium 8.7 mg/dL (8.4-10.2); Carbon Dioxide 21 mmol/L (22-30); Chloride 108 mmol/L (98-107); Estimated CRCL calculation 68 ml/min; Estimated Glomerular Filt Rate > 60; Glucose 125 mg/dL (65-110); Potassium 4.4 mmol/L (3.4-5.0); Sodium 136 mmol/L (137-145)
[2024-11-14 07:30] VITALS: BP 105/60; PULSE 67; RESP 16; TEMP 36.8; O2SAT 97
[2024-11-14] MEDS: SIMETHICONE 80 MG TAB.CHEW PO (07:41)
[2024-11-14] MEDS: DOCUSATE SODIUM 100 MG CAPSULE PO (07:41)
[2024-11-14] MEDS: IBUPROFEN 600 MG TABLET PO (09:38)
--- NOTE | 2024-11-14 10:01 | WPDANESPN ---
Anes - Prog Note Post-Op Date/Time: 11/14/24 10:01 Cardiovascular status: normal Respiratory status: normal Airway patency: baseline Mental status: baseline Post-Op hydration status: normal Vital Signs: Last Vital Signs Temp 36.8 C 11/14/24 07:30 Pulse 67 11/14/24 07:30 Resp 16 11/14/24 07:30 BP 105/60 11/14/24 07:30 Pulse Ox 97 11/14/24 07:30 O2 Del Method Room Air 11/13/24 13:45 O2 Flow Rate 8 11/13/24 13:05 Pain Score (VAS): 0 I/O: Intake & Output 11/13/24 11/14/24 11/14/24 23:59 07:59 15:59 Intake Total 500 480 Output Total 1610 150 Balance -1110 330 Laboratory Tests 11/14/24 03:59 11/14/24 03:59 11/13/24 11/14/24 09:00 03:59 WBC 14.1 H RBC 4.83 Hgb 12.8 Hct 41.0 MCV 84.9 MCH 26.5 MCHC 31.2 L RDW 15.0 H Plt Count 344 MPV 10.2 Immature Gran % (Auto) 0.3 Neut % (Auto) 83.2 H Lymph % (Auto) 11.0 L Baxter % (Auto) 5.3 Eos % (Auto) 0.1 Baso % (Auto) 0.1 L Lymph # (Auto) 1.55 Baxter # (Auto) 0.8 H Eos # (Auto) 0.0 Baso # (Auto) 0.0 Abs Immat Gran (auto) 0.04 H Absolute Neuts (auto) 11.8 H Absolute Nucleated RBC 0.000 Nucleated RBC % 0.0 Sodium 136 L Potassium 4.4 Chloride 108 H Carbon Dioxide 21 L Anion Gap 7 BUN 9 Creatinine 0.92 Estim Creat Clear Calc 68 Estimated GFR > 60 Glucose 125 H Calcium 8.7 POC Urine HCG, Qual Negative Post-procedural complaints: none Patient Feedback: Patient satisfied with anesthetic care.
== END 2024-11-14 10:03 | disposition home or self-care (01) ==
LOC: ANHSURGERY 11:49 → ANHOB2 13:55
PROVIDERS: PCP Nurse Practitioner Family; Visit Provider Student in an Organized Health Care Education/Training Program
PROC: (CPT 58571; principal; 2024-11-13 10:30)
DX: D25.1 Intramural leiomyoma of uterus (principal); D25.0 Submucous leiomyoma of uterus; N93.9 Abnormal uterine and vaginal bleeding, unspecified; R10.2 Pelvic and perineal pain; F17.210 Nicotine dependence, cigarettes, uncomplicated; F12.90 Cannabis use, unspecified, uncomplicated
CPT/HCPCS: 58571; S2900; 36415; 80048; 85025; 88307; 99199; A9270; J0690; J1100; J1171; J1885; J2003; J2004; J2250; J2405; J2704; J3010; J7030; J7120

== ENCOUNTER 2024-11-29 08:01 | Outpatient (CLI) | payer OTHER, SELFPAY ==
--- NOTE | ~2024-11-29 | MMUS_ITS ---
EXAMINATION: MM diagnostic aster LT w nallely, US breast LT complete HISTORY: Follow-up left breast asymmetry TECHNIQUE: Additional 3-D tomosynthesis images of the left breast were performed and synthetic 2-D im ages were generated. CAD analysis was submitted and interpreted. High resolution complete left breast ultrasound was performed. COMPARISON: Comparison to multiple prior studies sequentially, with oldest reviewed study dated 09/27. BREAST PARENCHYMAL COMPOSITION: Dense: The breasts are extremely dense, which lowers the sensitivity of mammography. FINDINGS: MAMMOGRAPHIC FINDINGS: There are no suspicious masses, calcifications or architectural distortion in the left breast to sugg est malignancy. ULTRASOUND: Complete US of all 4 quadrants of the breast/s and retroareolar region was reviewed. Normal heterogen eous echotexture without focal solid or cystic mass. IMPRESSION: 1. No evidence for malignancy in the left breast. 2. Routine yearly screening mammogram and regular clinical breast examination are recommended. BI-RADS Category 2: Benign finding(s). Reviewed, dictated and finalized at location A. IMPRESSION: 1. No evidence for malignancy in the left breast. 2. Routine yearly screening mammogram and regular clinical breast examination a re recommended. BI-RADS Category 2: Benign finding(s).
== END 2024-11-29 08:02 | disposition home or self-care (01) ==
LOC: MICIMG 08:02
PROVIDERS: PCP Nurse Practitioner Family; Visit Provider Nurse Practitioner Family
DX: R92.8 Other abnormal and inconclusive findings on diagnostic imaging of breast (principal)
CPT/HCPCS: 76641; 77061; 77065; G0279